=== PATIENT | female | born 1995 | race Caucasian/White ===

== ENCOUNTER 2020-07-03 12:38 | Emergency (ER) | payer OTHER ==
[~2020-07-03] VITALS: Ht 172.7 cm; Wt 65.9 kg
--- NOTE | 2020-07-03 13:30 | NUR ---
Mar bansal in [facility] - 07/03/20 at 1330 by PETER TECHNICIAN AUTOMATED EQUIPMENT: [facility]
--- NOTE | 2020-07-03 13:31 | NUR ---
ENOLOGIST: PT TO ROOM FROM LOBBY VIA WHEELCHAIR
[2020-07-03] MEDS ORDERED: HYDROcodone/APAP 5/325 TABLET ONE (13:45)
--- NOTE | 2020-07-03 13:50 | NUR ---
PT TO US
[2020-07-03 13:59] LABS: BASOPHILS % (AUTO) 0 % (0-1); EOSINOPHILS % (AUTO) 0 % (1-7); LYMPHOCYTES % (AUTO) 18 % (22-44); MEAN CORPUSCULAR HGB CONC 34.8 g/dL (32.4-35.8); MEAN PLATELET VOLUME 8.5 fL (7.4-10.4); MONOCYTES % (AUTO) 7 % (2-9); NEUTROPHILS % (AUTO) 74 % (42-75); PLATELET COUNT 290 x10^3/uL (130-400); RED BLOOD COUNT 4.83 x10^6/uL (3.82-5.3); RED CELL DISTRIBUTION WIDTH 12.8 % (9.6-15.2)
[2020-07-03] MEDS ORDERED: HYDROcodone/APAP 5/325 TABLET PO PRN (14:00)
[2020-07-03 14:01] LABS: MD NO
[2020-07-03 14:10] LABS: ALKALINE PHOSPHATASE 55 U/L (45-117); BILIRUBIN,TOTAL 0.8 mg/dL (0.2-1.0); TOTAL PROTEIN 7.8 g/dL (6.4-8.2)
[2020-07-03 14:17] LABS: ANION GAP 6 mmol/L (5-15); CHLORIDE 108 mmol/L (98-107)
[2020-07-03 14:20] LABS: ALANINE AMINOTRANSFERASE 24 U/L (12-78); ALBUMIN 4.3 g/dL (3.4-5.0); CALCIUM 8.9 mg/dL (8.5-10.1); CREATININE 0.77 mg/dL (0.55-1.02)
[2020-07-03 14:22] LABS: MICROSCOPIC INDICATED
[2020-07-03 15:01] VITALS: BP 97/78
--- NOTE | 2020-07-03 15:01 | NUR ---
PT UPRIGHT ON GURNEY AWAKE & COMFORTABLE AT REST, TEXTING ON CELLPHONE, RESPONDS APPROP TO STAFF, COMFORT MEASURES PROVIDED, BF AT BS, CALL LIGHT WITHIN REACH.
--- NOTE | 2020-07-03 15:34 | NUR ---
PatientBgiven discharge instructions and Rx called into preferred pharmacy, they have confirmed that they understand the instructions. Patient ambulatory with steady gait.
== END 2020-07-03 15:34 | disposition home or self-care (01) ==
LOC: ED 15:25
DX: N83.291 Other ovarian cyst, right side (principal); F17.200 Nicotine dependence, unspecified, uncomplicated
CPT/HCPCS: 36415; 76830; 80053; 81001; 84703; 85025; 87086; 99284